=== PATIENT | male | born 1995 | race Two or more races ===

== ENCOUNTER 2020-03-18 11:10 | Emergency (ER) | payer SELFPAY ==
[~2020-03-18] VITALS: Ht 165.1 cm; Wt 66.0 kg
[2020-03-18] MEDS ORDERED: OLANZAPINE 5MG TABLET ODT PO ONE (11:45)
[2020-03-18 12:13] LABS: CHLORIDE 108 mEq/L (98-107)
[2020-03-18 12:14] LABS: EOSINOPHILS % 1.3 % (0.0-5.0); HEMATOCRIT. 31.8 % (42.0-52.0); LYMPHOCYTES % 32.8 % (20.0-50.0); MEAN CORPUSCULAR HEMOGLOBIN 26.3 pg (28.0-32.0); MEAN CORPUSCULAR VOLUME 83.5 fL (80.0-94.0); MEAN PLATELET VOLUME 7.4 fl (7.4-10.4); MONOCYTES % 8.6 % (2.0-8.0); NEUTROPHILS % 56.3 % (40.0-76.0); PLATELET 363 x1000/uL (130-400); RED CELL DISTRIBUTION WIDTH 20.3 % (11.6-14.6)
[2020-03-18 12:33] LABS: ETHANOL BLOOD 500 mg/dL
[2020-03-18 12:45] VITALS: BP 122/80
== END 2020-03-18 18:00 | disposition left against medical advice (07) ==
LOC: ER 11:10
DX: F10.129 Alcohol abuse with intoxication, unspecified (principal); I49.9 Cardiac arrhythmia, unspecified; Y90.8 Blood alcohol level of 240 mg/100 ml or more
CPT/HCPCS: 36415; 80053; 80320; 85025; 93005; 99284; G0480